=== PATIENT | male | born 1955 | race Caucasian/White ===

== ENCOUNTER 2017-06-19 06:57 | Day surgery (SDC) | payer BC ==
[2017-06-19] MEDS ORDERED: Midazolam 1 MG/ML 2 ML SDV ONE (07:14)
[2017-06-19] MEDS ORDERED: Propofol 200 MG/20 ML SDV ONE (07:14)
[2017-06-19] MEDS ORDERED: fentaNYL 100 MCG/2 ML SDV ONE (07:14)
[2017-06-19] MEDS ORDERED: Sodium Chloride 0.9% 1,000 ML IV SCH (08:00)
--- NOTE | 2017-07-10 09:30 | OR ---
DATE OF PROCEDURE: 06/19/2017 PROCEDURE: Colonoscopy. FINDINGS: Normal colonoscopy. RISKS: Risks, benefits, alternatives, limitations including, but not limited to infection, bleeding, and other risks were explained, along with perforation, were explained to the patient, and he wished to proceed. PREOPERATIVE DIAGNOSIS: Screening colonoscopy. POSTOPERATIVE DIAGNOSIS: Screening colonoscopy. PROCEDURE IN DETAIL: The patient was placed in left lateral decubitus position. Digital rectal exam was performed without abnormality. The scope was introduced and advanced atraumatically to the ileocecal valve. The scope was brought back through the ascending, transverse, descending colon, and retroflexed. No masses. No polyps. No diverticulosis. No old or new blood. Prep was acceptable. The patient tolerated the procedure well. No abnormalities on retroflex. Henry Snell MD /[id number]
== END 2017-06-19 09:39 | disposition home or self-care (01) ==
LOC: JP.SDS 06:57
PROVIDERS: ATTEND Surgery
DX: Z12.11 Encounter for screening for malignant neoplasm of colon (principal); I10 Essential (primary) hypertension; E11.9 Type 2 diabetes mellitus without complications; Z88.1 Allergy status to other antibiotic agents; Z88.2 Allergy status to sulfonamides; Z88.8 Allergy status to other drugs, medicaments and biological substances; Z79.4 Long term (current) use of insulin
CPT/HCPCS: 45378; 82962; J2250; J2704; J3010; J7040

== ENCOUNTER 2019-08-04 15:11 | Emergency (ER) | payer MEDICARE ==
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
[2019-08-04] MEDS ORDERED: Sodium Chloride 0.9% 10 ML Syringe FLUSH PRN (15:44)
[2019-08-04] MEDS ORDERED: HYDROmorphone 1 MG/ML Syringe IM ONE (16:06)
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
== END 2019-08-04 17:03 | disposition home or self-care (01) ==
LOC: JP.ED 15:11
DX: S22.42XA Multiple fractures of ribs, left side, initial encounter for closed fracture (principal); E78.00 Pure hypercholesterolemia, unspecified; I12.9 Hypertensive chronic kidney disease with stage 1 through stage 4 chronic kidney disease, or unspecified chronic kidney disease; N18.3 Chronic kidney disease, stage 3 (moderate); E11.22 Type 2 diabetes mellitus with diabetic chronic kidney disease; Z88.1 Allergy status to other antibiotic agents; Z88.5 Allergy status to narcotic agent; Z88.2 Allergy status to sulfonamides; Z79.4 Long term (current) use of insulin; Z79.82 Long term (current) use of aspirin; Z79.899 Other long term (current) drug therapy; Z86.718 Personal history of other venous thrombosis and embolism; W19.XXXA Unspecified fall, initial encounter
CPT/HCPCS: 36415; 71250; 74176; 80053; 85025; 96372; 99283; 99285; J1170

== ENCOUNTER 2020-06-10 11:55 | Emergency (ER) | payer MEDICARE ==
[2020-06-10] MEDS ORDERED: Sodium Chloride 0.9% 1,000 ML IV SCH (14:15)
[2020-06-10] MEDS ORDERED: Dexamethasone 4 MG/ML SDV IVPUSH ONE (15:41)
--- NOTE | 2020-06-10 15:44 | EDM.PDOC ---
ED HPI GENERAL MEDICAL PROBLEM - General Chief Complaint: Respiratory Problem Stated Complaint: TESTED POSTIVE FOR COVID 8 DAYS AGO BREATHING Time Seen by Provider: 06/10/20 12:15 Source of Information: Reports: Patient History Limitations: Reports: No Limitations - History of Present Illness INITIAL COMMENTS - FREE TEXT/NARRATIVE: pt arrived with a history of covid and this was positive around dec 1. He has not improved and he is running fevers and feeling more sob. His chest is feeling tight. He is drinking good but eating poorly. He has notieced the fevers at nite the last few days. Onset: Gradual Duration: Hour(s): Location: Reports: Chest Associated Symptoms: Reports: Cough, Fever/Chills, Loss of Appetite, Shortness of Breath - Related Data Allergies Allergy/AdvReac Type Severity Reaction Status Date / Time acetaminophen [From Vicodin] Allergy Other Verified 06/10/20 12:44 erythromycin base Allergy Other Verified 06/10/20 12:44 hydrocodone [From Vicodin] Allergy Other Verified 06/10/20 12:44 Sulfa (Sulfonamide Allergy Other Verified 06/10/20 12:44 Antibiotics) Home Meds: Home Meds Losartan [Cozaar] 50 mg PO DAILY 06/18/17 [History] Simvastatin [Zocor] 40 mg PO DAILY 03/07/18 [History] Aspirin [Ecotrin EC] 1 tab PO DAILY 08/04/19 [History] Multivitamin [Multivitamins] 1 tab PO DAILY 08/04/19 [History] Insulin NPH/Insulin Reg,Human [Novolin 70-30] 0 unit SQ BID 06/10/20 [History] Past Medical History HEENT History: Reports: Impaired Vision Cardiovascular History: Reports: Blood Clots/VTE/DVT, High Cholesterol, Hypertension, Other (See Below) Other Cardiovascular History: greenfeild filter Respiratory History: Reports: PE Gastrointestinal History: Reports: Chronic Constipation Genitourinary History: Reports: Other (See Below) Other Genitourinary History: stage III kidney disease as a result of diabetes Musculoskeletal History: Reports: Arthritis, Fracture, Other (See Below) Other Musculoskeletal History: shoulder pain Neurological History: Reports: Concussion Psychiatric History: Reports: Depression Endocrine/Metabolic History: Reports: Diabetes, Type II Hematologic History: Reports: Other (See Below) Other Hematologic History: history of DVTs with iva filter - Infectious Disease History Infectious Disease History: Reports: Chicken Pox, Mumps, Shingles - Past Surgical History Head Surgeries/Procedures: Reports: None HEENT Surgical History: Reports: Laser Surgery, Other (See Below) Cardiovascular Surgical History: Reports: None Respiratory Surgical History: Reports: None GI Surgical History: Reports: None Male Surgical History: Reports: None Endocrine Surgical History: Reports: None Neurological Surgical History: Reports: None Musculoskeletal Surgical History: Reports: Arthroscopic Procedure, Carpal Tunnel, Shoulder Surgery, Other (See Below) Dermatological Surgical History: Reports: None Social & Family History - Family History Family Medical History: No Pertinent Family History - Tobacco Use Tobacco Use Status *Q: Never Tobacco User Second Hand Smoke Exposure: No - Caffeine Use Caffeine Use: Reports: None - Recreational Drug Use Recreational Drug Use: No ED ROS GENERAL - Review of Systems Review Of Systems: See Below Constitutional: Reports: Weakness, Fatigue, Diaphoresis HEENT: Reports: No Symptoms Respiratory: Reports: Shortness of Breath, Cough Cardiovascular: Reports: Dyspnea on Exertion Endocrine: Reports: No Symptoms GI/Abdominal: Reports: No Symptoms : Reports: No Symptoms Musculoskeletal: Reports: No Symptoms Skin: Reports: No Symptoms Neurological: Reports: No Symptoms ED EXAM, GENERAL - Physical Exam Exam: See Below Free Text/Narrative:: pt arrived with a low grade temp. He has been more sob. He has not felt like he is improving. Exam Limited By: No Limitations General Appearance: Alert, Anxious, Mild Distress, Other (pt is oxgenating ok. ) Ears: Normal TMs Nose: Normal Inspection Throat/Mouth: Normal Inspection Head: Atraumatic Neck: Normal Inspection Respiratory/Chest: No Respiratory Distress Cardiovascular: Regular Rate, Rhythm GI/Abdominal: Soft, Non-Tender (Male) Exam: Deferred Rectal (Males) Exam: Deferred Back Exam: Normal Inspection Extremities: Normal Inspection Neurological: Alert, Oriented, Normal Cognition Course - Vital Signs Last Recorded V/S: Last Vital Signs Temp 37.6 C 06/10/20 12:46 Pulse 80 06/10/20 15:15 Resp 20 06/10/20 15:15 BP 183/90 H 06/10/20 15:15 Pulse Ox 95 06/10/20 13:14 - Orders/Labs/Meds Orders: Active Orders 24 hr Category Date Time Status Chest 1V Frontal [CR] Stat Exams 06/10/20 12:49 Taken Sodium Chloride 0.9% [Normal Saline] 1,000 ml Med 06/10/20 14:15 Active IV ASDIRECTED Medication Orders Sodium Chloride (Normal Saline) 1,000 mls @ 250 mls/hr IV ASDIRECTED THUAN Last Admin: 06/10/20 14:40 Dose: 250 mls/hr Documented by: SHANTAL Labs: Laboratory Tests 06/10/20 06/10/20 06/10/20 Range/Units 12:43 12:43 12:43 WBC 6.4 (4.5-11.0) K/uL RBC 4.94 (4.30-5.90) M/uL Hgb 14.2 (12.0-15.0) g/dL Hct 41.6 (40.0-54.0) % MCV 84 (80-98) fL MCH 29 (27-31) pg MCHC 34 (32-36) % Plt Count 262 (150-400) K/uL Neut % (Auto) 72 H (36-66) % Lymph % (Auto) 16 L (24-44) % Foster % (Auto) 11 H (2-6) % Eos % (Auto) 1 L (2-4) % Baso % (Auto) 1 (0-1) % D-Dimer, Quantitative 937.26 H (0.0-500.0) ng/mL Sodium 133 L (140-148) mmol/L Potassium 3.8 (3.6-5.2) mmol/L Chloride 96 L (100-108) mmol/L Carbon Dioxide 23 (21-32) mmol/L Anion Gap 17.8 H (5.0-14.0) mmol/L BUN 24 H (7-18) mg/dL Creatinine 2.1 H (0.8-1.3) mg/dL Est Cr Clr Drug Dosing 37.27 mL/min Estimated GFR (MDRD) 32 L (>60) Glucose 221 H (74-106) mg/dL Calcium 8.4 L (8.5-10.1) mg/dL Total Bilirubin 0.5 (0.2-1.0) mg/dL AST 29 (15-37) U/L ALT 32 (12-78) U/L Alkaline Phosphatase 75 (46-116) U/L C-Reactive Protein (0.0-0.3) mg/dL Total Protein 6.7 (6.4-8.2) g/dL Albumin 2.3 L (3.4-5.0) g/dL Globulin 4.4 H (2.3-3.5) g/dL Albumin/Globulin Ratio 0.5 L (1.2-2.2) Urine Color (YELLOW) Urine Appearance (CLEAR) Urine pH (5.0-8.0) Ur Specific [place] (1.008-1.030) Urine Protein (NEGATIVE) mg/dL Urine Glucose (UA) (NEGATIVE) mg/dL Urine Ketones (NEGATIVE) mg/dL Urine Occult Blood (NEGATIVE) Urine Nitrite (NEGATIVE) Urine Bilirubin (NEGATIVE) Urine Urobilinogen (0.2-1.0) EU/dL Ur Leukocyte Esterase (NEGATIVE) Urine RBC (0-5) Urine WBC (0-5) Ur Epithelial Cells Amorphous Sediment Urine Bacteria Urine Mucus 06/10/20 06/10/20 Range/Units 12:43 13:04 WBC (4.5-11.0) K/uL RBC (4.30-5.90) M/uL Hgb (12.0-15.0) g/dL Hct (40.0-54.0) % MCV (80-98) fL MCH (27-31) pg MCHC (32-36) % Plt Count (150-400) K/uL Neut % (Auto) (36-66) % Lymph % (Auto) (24-44) % Foster % (Auto) (2-6) % Eos % (Auto) (2-4) % Baso % (Auto) (0-1) % D-Dimer, Quantitative (0.0-500.0) ng/mL Sodium (140-148) mmol/L Potassium (3.6-5.2) mmol/L Chloride (100-108) mmol/L Carbon Dioxide (21-32) mmol/L Anion Gap (5.0-14.0) mmol/L BUN (7-18) mg/dL Creatinine (0.8-1.3) mg/dL Est Cr Clr Drug Dosing mL/min Estimated GFR (MDRD) (>60) Glucose (74-106) mg/dL Calcium (8.5-10.1) mg/dL Total Bilirubin (0.2-1.0) mg/dL AST (15-37) U/L ALT (12-78) U/L Alkaline Phosphatase (46-116) U/L C-Reactive Protein 7.59 H (0.0-0.3) mg/dL Total Protein (6.4-8.2) g/dL Albumin (3.4-5.0) g/dL Globulin (2.3-3.5) g/dL Albumin/Globulin Ratio (1.2-2.2) Urine Color Yellow (YELLOW) Urine Appearance Slightly cloudy A (CLEAR) Urine pH 6.0 (5.0-8.0) Ur Specific [place] 1.025 (1.008-1.030) Urine Protein >=300 H (NEGATIVE) mg/dL Urine Glucose (UA) 100 H (NEGATIVE) mg/dL Urine Ketones Negative (NEGATIVE) mg/dL Urine Occult Blood Moderate H (NEGATIVE) Urine Nitrite Negative (NEGATIVE) Urine Bilirubin Negative (NEGATIVE) Urine Urobilinogen 1.0 (0.2-1.0) EU/dL Ur Leukocyte Esterase Negative (NEGATIVE) Urine RBC 0-5 (0-5) Urine WBC 0-5 (0-5) Ur Epithelial Cells Rare Amorphous Sediment Few Urine Bacteria Few Urine Mucus Not seen Meds: Medications Generic Name Dose Route Start Last Admin Trade Name Freq PRN Reason Stop Dose Admin Sodium Chloride 1,000 mls @ 250 mls/hr 06/10/20 14:15 06/10/20 14:40 Normal Saline IV 250 mls/hr ASDIRECTED THUAN Administration - Re-Assessments/Exams Free Text/Narrative Re-Assessment/Exam: 06/10/20 15:45 pt has a elevated ddimer and crp. He is oxgening good. He is a diabetic and has hypertension. pt is a canidate for monoclonal therapy. He was given a liter of f luid. since he is oxgenating well. Departure - Departure Time of Disposition: 15:47 Disposition: Home, Self-Care 01 Condition: Fair Clinical Impression: COVID-19, Dehydration - Discharge Information Referrals: PCP,None [Primary Care Provider] - Care Plan Goals: rtc tomorrow for monoclonal infusion, continue to push fluids at home, decadron 4mg bid for 3 days. The decadron will raise your bs. Rtc if you are suddenly worse. Sepsis Event Note (ED) - Evaluation Sepsis Screening Result: No Definite Risk - Focused Exam Vital Signs: Vital Signs Temp Pulse Resp BP Pulse Ox 06/10/20 15:15 80 20 183/90 H 06/10/20 13:14 86 15 183/96 H 95 06/10/20 12:46 37.6 C 85 20 194/99 H 94 L 06/10/20 12:39 82 14 177/95 H 89 L 06/10/20 12:14 37.6 C 85 20 194/99 H 94 L - My Orders Last 24 Hours: My Active Orders 06/10/20 12:49 Chest 1V Frontal [CR] Stat 06/10/20 14:15 Sodium Chloride 0.9% [Normal Saline] 1,000 ml IV ASDIRECTED - Assessment/Plan Last 24 Hours: My Active Orders 06/10/20 12:49 Chest 1V Frontal [CR] Stat 06/10/20 14:15 Sodium Chloride 0.9% [Normal Saline] 1,000 ml IV ASDIRECTED
--- NOTE | 2020-06-11 10:58 | CR ---
CHEST: Vertebral 06/10/2020 at 1:19 PM CLINICAL HISTORY:SOB COMPARISON:CT July 2019 FINDINGS: Heart size and pulmonary vascular normal. There is ill-defined pneumonic infiltrate or pneumonitis in THE LEFT LUNG. RIGHT LUNG IS RELATIVELY CLEAR. THERE ARE NO EFFUSIONS. IMPRESSION: Diffuse left lung pneumonic infiltrate.
== END 2020-06-10 16:09 | disposition home or self-care (01) ==
LOC: JP.ED 11:55
DX: U07.1 COVID-19 (principal); E86.0 Dehydration; E78.00 Pure hypercholesterolemia, unspecified; I10 Essential (primary) hypertension; M19.90 Unspecified osteoarthritis, unspecified site; E11.9 Type 2 diabetes mellitus without complications; Z88.6 Allergy status to analgesic agent; Z88.1 Allergy status to other antibiotic agents; Z88.5 Allergy status to narcotic agent; Z88.2 Allergy status to sulfonamides; Z79.82 Long term (current) use of aspirin; Z79.4 Long term (current) use of insulin; Z79.899 Other long term (current) drug therapy
CPT/HCPCS: 36415; 71045; 80053; 81001; 85025; 85379; 86140; 96374; 99285; J1100; J7030

== ENCOUNTER 2022-01-13 13:30 | Emergency (ER) | payer MEDICARE ==
[2022-01-13] MEDS ORDERED: HYDROmorphone 1 MG/ML Syringe IM ONE (15:20)
== END 2022-01-13 16:20 | disposition home or self-care (01) ==
LOC: JP.ED 13:30
DX: S86.001A Unspecified injury of right Achilles tendon, initial encounter (principal); E78.00 Pure hypercholesterolemia, unspecified; E11.22 Type 2 diabetes mellitus with diabetic chronic kidney disease; I12.9 Hypertensive chronic kidney disease with stage 1 through stage 4 chronic kidney disease, or unspecified chronic kidney disease; N18.30 Chronic kidney disease, stage 3 unspecified; Z88.1 Allergy status to other antibiotic agents; Z88.2 Allergy status to sulfonamides; Z88.5 Allergy status to narcotic agent; Z88.8 Allergy status to other drugs, medicaments and biological substances; Z79.4 Long term (current) use of insulin; Z79.899 Other long term (current) drug therapy; W22.09XA Striking against other stationary object, initial encounter; Y92.59 Other trade areas as the place of occurrence of the external cause; Y99.0 Civilian activity done for income or pay
CPT/HCPCS: 96372; 99283; J1170

== ENCOUNTER 2022-12-19 17:50 | Emergency (ER) | payer MEDICARE ==
[2022-12-19 19:52] LABS: BASOPHILS ABSOLUTE AUTO 0.16 K/uL (0.00-0.10); BASOPHILS PERCENT AUTO 1.8 % (0.1-1.3); EOSINOPHILS ABSOLUTE AUTO 0.36 K/uL (0.00-0.40); EOSINOPHILS PERCENT AUTO 4.2 % (0.0-5.4); HEMOGLOBIN 13.5 g/dL (12.9-16.9); IMMATURE GRAN ABSOLUTE AUTO 0.05 K/uL (0.00-0.23); IMMATURE GRAN PERCENT AUTO 0.6 % (0.0-0.7); LYMPHOCYTES ABSOLUTE AUTO 2.71 K/uL (0.8-3.3); LYMPHOCYTES PERCENT AUTO 31.3 % (11.4-47.7); MEAN CORPUSCULAR HEMOGLOBIN 29.3 pg (31.6-35.5); MEAN CORPUSCULAR HGB CONC 34.6 g/dL (31.6-35.5); MEAN CORPUSCULAR VOLUME 84.8 fL (81.4-99.0); MONOCYTES ABSOLUTE AUTO 0.83 K/uL (0.20-0.90); MONOCYTES PERCENT AUTO 9.6 % (3.3-12.6); NEUTROPHILS ABSOLUTE AUTO 4.56 K/uL (1.0-7.6); NEUTROPHILS PERCENT AUTO 52.5 % (40.0-78.1); PLATELET COUNT,PLT 273 K/uL (130-375); WHITE BLOOD CELL COUNT,WBC 8.7 K/uL (3.2-11.0)
[2022-12-19 20:14] LABS: A/G RATIO 0.7 (1.2-2.2); ALANINE AMINOTRANSFERASE,ALT 28 U/L (12-78); ALBUMIN 2.9 g/dL (3.4-5.0); ALKALINE PHOSPHATASE 65 U/L (46-116); ASPARTATE AMNIOTRANSFERASE,AST 18 U/L (15-37); BILIRUBIN TOTAL 0.3 mg/dL (0.2-1.0); BLOOD UREA NITROGEN,BUN 54 mg/dL (7-18); C-REACTIVE PROTEIN 0.43 mg/dL (0.0-0.3); CALCIUM 8.2 mg/dL (8.5-10.1); CARBON DIOXIDE,CO2 21 mmol/L (21-32); CHLORIDE,CL 104 mmol/L (100-108); EST CRCL DRUG DOSING (CG) 20.28 mL/min; ESTIMATED GFR 17 mL/min (>60); GLUCOSE RANDOM 151 mg/dL (74-106); POTASSIUM,K 3.9 mmol/L (3.6-5.2); SODIUM,NA 136 mmol/L (140-148)
[2022-12-19 20:15] LABS: ANION GAP 14.9 mmol/L (5.0-14.0)
[2022-12-19 20:16] LABS: CREATININE 3.7 mg/dL (0.8-1.3)
== END 2022-12-19 22:15 | disposition home or self-care (01) ==
LOC: JP.ED 17:50
DX: S90.862A Insect bite (nonvenomous), left foot, initial encounter (principal); L03.116 Cellulitis of left lower limb; E11.22 Type 2 diabetes mellitus with diabetic chronic kidney disease; I12.9 Hypertensive chronic kidney disease with stage 1 through stage 4 chronic kidney disease, or unspecified chronic kidney disease; N18.4 Chronic kidney disease, stage 4 (severe); Z79.4 Long term (current) use of insulin; Z79.899 Other long term (current) drug therapy; Z88.1 Allergy status to other antibiotic agents; Z88.2 Allergy status to sulfonamides; Z88.8 Allergy status to other drugs, medicaments and biological substances; W57.XXXA Bitten or stung by nonvenomous insect and other nonvenomous arthropods, initial encounter
CPT/HCPCS: 36415; 80053; 85025; 85379; 86140; 93971-LT; 99284

== ENCOUNTER 2023-07-01 10:04 | Emergency (ER) | payer MEDICARE ==
[2023-07-01 11:40] LABS: BASOPHILS ABSOLUTE AUTO 0.11 K/uL (0.00-0.10); BASOPHILS PERCENT AUTO 1.2 % (0.1-1.3); EOSINOPHILS ABSOLUTE AUTO 0.32 K/uL (0.00-0.40); EOSINOPHILS PERCENT AUTO 3.6 % (0.0-5.4); HEMATOCRIT 35.8 % (38.4-49.7); HEMOGLOBIN 12.2 g/dL (12.9-16.9); IMMATURE GRAN ABSOLUTE AUTO 0.07 K/uL (0.00-0.23); IMMATURE GRAN PERCENT AUTO 0.8 % (0.0-0.7); LYMPHOCYTES ABSOLUTE AUTO 1.96 K/uL (0.8-3.3); LYMPHOCYTES PERCENT AUTO 21.9 % (11.4-47.7); MEAN CORPUSCULAR HEMOGLOBIN 29.8 pg (31.6-35.5); MEAN CORPUSCULAR HGB CONC 34.1 g/dL (31.6-35.5); MEAN CORPUSCULAR VOLUME 87.3 fL (81.4-99.0); MONOCYTES ABSOLUTE AUTO 0.83 K/uL (0.20-0.90); MONOCYTES PERCENT AUTO 9.3 % (3.3-12.6); NEUTROPHILS ABSOLUTE AUTO 5.66 K/uL (1.0-7.6); NEUTROPHILS PERCENT AUTO 63.2 % (40.0-78.1); PLATELET COUNT,PLT 318 K/uL (130-375)
[2023-07-01 11:58] LABS: C-REACTIVE PROTEIN 0.9 mg/dL (<0.50); CALCIUM 8.4 mg/dL (8.5-10.1); EST CRCL DRUG DOSING (CG) 19.48 mL/min; POTASSIUM,K 4.6 mmol/L (3.6-5.2)
[2023-07-01 11:59] LABS: ANION GAP 10.6 mmol/L (5.0-14.0)
[2023-07-01 12:00] LABS: CREATININE 3.8 mg/dL (0.8-1.3)
[2023-07-01 12:03] LABS: ALKALINE PHOSPHATASE 64 U/L (46-116); CREATINE KINASE,CK 174 U/L (39-308)
== END 2023-07-01 13:40 | disposition home or self-care (01) ==
LOC: JP.ED 10:04
DX: I12.9 Hypertensive chronic kidney disease with stage 1 through stage 4 chronic kidney disease, or unspecified chronic kidney disease (principal); E11.22 Type 2 diabetes mellitus with diabetic chronic kidney disease; N18.4 Chronic kidney disease, stage 4 (severe); D64.9 Anemia, unspecified; E78.00 Pure hypercholesterolemia, unspecified; Z79.4 Long term (current) use of insulin; Z79.899 Other long term (current) drug therapy; Z86.16 Personal history of COVID-19; Z88.6 Allergy status to analgesic agent
CPT/HCPCS: 36415; 73502-26-RT; 73502-RT; 80048; 82550; 84075; 85025; 85379; 86140; 99283

== ENCOUNTER 2023-07-06 04:15 | Emergency (ER) | payer MEDICARE ==
[2023-07-06 04:55] LABS: BASOPHILS ABSOLUTE AUTO 0.04 K/uL (0.00-0.10); BASOPHILS PERCENT AUTO 0.3 % (0.1-1.3); EOSINOPHILS PERCENT AUTO 1.5 % (0.0-5.4); HEMATOCRIT 33.5 % (38.4-49.7); HEMOGLOBIN 11.2 g/dL (12.9-16.9); IMMATURE GRAN ABSOLUTE AUTO 0.05 K/uL (0.00-0.23); IMMATURE GRAN PERCENT AUTO 0.4 % (0.0-0.7); LYMPHOCYTES ABSOLUTE AUTO 1.87 K/uL (0.8-3.3); MEAN CORPUSCULAR HEMOGLOBIN 29.4 pg (31.6-35.5); MEAN CORPUSCULAR HGB CONC 33.4 g/dL (31.6-35.5); MEAN CORPUSCULAR VOLUME 87.9 fL (81.4-99.0); MONOCYTES ABSOLUTE AUTO 1.18 K/uL (0.20-0.90); MONOCYTES PERCENT AUTO 8.8 % (3.3-12.6); NEUTROPHILS ABSOLUTE AUTO 10.06 K/uL (1.0-7.6); PLATELET COUNT,PLT 270 K/uL (130-375); RED BLOOD CELL COUNT 3.81 M/uL (4.14-5.76); WHITE BLOOD CELL COUNT,WBC 13.4 K/uL (3.2-11.0)
[2023-07-06 05:11] LABS: A/G RATIO 0.6 (1.2-2.2); ALANINE AMINOTRANSFERASE,ALT 23 U/L (12-78); ALBUMIN 2.6 g/dL (3.4-5.0); ALKALINE PHOSPHATASE 59 U/L (46-116); ASPARTATE AMNIOTRANSFERASE,AST 14 U/L (15-37); BILIRUBIN TOTAL 0.4 mg/dL (0.2-1.0); BLOOD UREA NITROGEN,BUN 66 mg/dL (7-18); CALCIUM 7.8 mg/dL (8.5-10.1); CARBON DIOXIDE,CO2 17 mmol/L (21-32); CHLORIDE,CL 97 mmol/L (100-108); ESTIMATED GFR 12 mL/min (>60); GLUCOSE RANDOM 186 mg/dL (74-106); POTASSIUM,K 4.3 mmol/L (3.6-5.2); PROTEIN TOTAL,TP 6.9 g/dL (6.4-8.2); SODIUM,NA 126 mmol/L (140-148)
[2023-07-06 05:13] LABS: ANION GAP 16.3 mmol/L (5.0-14.0)
[2023-07-06] MEDS ORDERED: Sodium Chloride 0.9% 10 ML Syringe FLUSH PRN (05:20)
[2023-07-06] MEDS ORDERED: Sodium Chloride 0.9% 1,000 ML IV SCH (05:30)
[2023-07-06 15:11] LABS: CALCIUM 7.7 mg/dL (8.5-10.1); EST CRCL DRUG DOSING (CG) 12.54 mL/min; POTASSIUM,K 4.5 mmol/L (3.6-5.2)
[2023-07-06 15:12] LABS: ANION GAP 16.5 mmol/L (5.0-14.0)
[2023-07-06 15:13] LABS: CREATININE 5.9 mg/dL (0.8-1.3)
[2023-07-06 15:42] LABS: APPEARANCE,URINE SLIGHTLY CLOUDY (CLEAR); BILIRUBIN,URINE NEGATIVE (NEGATIVE); COLOR,URINE YELLOW (YELLOW); GLUCOSE,URINE 100 mg/dL (NEGATIVE); KETONES,URINE NEGATIVE (NEGATIVE); LEUKOCYTE ESTERASE,URINE NEGATIVE (NEGATIVE); NITRITE,URINE NEGATIVE (NEGATIVE); OCCULT BLOOD,URINE SMALL (NEGATIVE); PH,URINE 5.5 (5.0-8.0); PROTEIN,URINE >=300 mg/dL (NEGATIVE); UROBILINOGEN,URINE 0.2 EU/dL (0.2-1.0)
[2023-07-06 15:47] LABS: AMORPHOUS SEDIMENT,URINE MODERATE; BACTERIA,URINE MANY; EPITHELIAL CELLS,URINE FEW; WBC,URINE 0-5 (0-5)
[2023-07-06 15:48] LABS: MUCUS,URINE MODERATE
== END 2023-07-06 18:05 ==
LOC: JP.ED 04:15
DX: R41.82 Altered mental status, unspecified (principal); N18.6 End stage renal disease; I12.0 Hypertensive chronic kidney disease with stage 5 chronic kidney disease or end stage renal disease; E78.00 Pure hypercholesterolemia, unspecified; E11.22 Type 2 diabetes mellitus with diabetic chronic kidney disease; Z86.16 Personal history of COVID-19; Z79.01 Long term (current) use of anticoagulants; Z79.4 Long term (current) use of insulin; Z88.5 Allergy status to narcotic agent; Z88.1 Allergy status to other antibiotic agents; Z88.6 Allergy status to analgesic agent
CPT/HCPCS: 36415; 80048; 80053; 81001; 82140; 83605; 84145; 85025; 86140; 87040; 87086; 96360; 96361; 99284; 99285; J3490; J7030

== ENCOUNTER 2023-08-05 19:23 | Emergency (ER) | payer MEDICARE ==
[2023-08-05 20:15] LABS: BASOPHILS PERCENT AUTO 1.4 % (0.1-1.3); EOSINOPHILS ABSOLUTE AUTO 0.23 K/uL (0.00-0.40); EOSINOPHILS PERCENT AUTO 3.2 % (0.0-5.4); HEMATOCRIT 30.9 % (38.4-49.7); HEMOGLOBIN 10.7 g/dL (12.9-16.9); IMMATURE GRAN ABSOLUTE AUTO 0.03 K/uL (0.00-0.23); IMMATURE GRAN PERCENT AUTO 0.4 % (0.0-0.7); LYMPHOCYTES ABSOLUTE AUTO 1.95 K/uL (0.8-3.3); LYMPHOCYTES PERCENT AUTO 27.5 % (11.4-47.7); MEAN CORPUSCULAR HEMOGLOBIN 30.1 pg (31.6-35.5); MEAN CORPUSCULAR HGB CONC 34.6 g/dL (31.6-35.5); MONOCYTES ABSOLUTE AUTO 0.89 K/uL (0.20-0.90); MONOCYTES PERCENT AUTO 12.6 % (3.3-12.6); NEUTROPHILS ABSOLUTE AUTO 3.88 K/uL (1.0-7.6); NEUTROPHILS PERCENT AUTO 54.9 % (40.0-78.1); PLATELET COUNT,PLT 273 K/uL (130-375); RED BLOOD CELL COUNT 3.55 M/uL (4.14-5.76); WHITE BLOOD CELL COUNT,WBC 7.1 K/uL (3.2-11.0)
[2023-08-05 20:30] LABS: CALCIUM 8.5 mg/dL (8.5-10.1); CREATININE 2.8 mg/dL (0.8-1.3); EST CRCL DRUG DOSING (CG) 26.43 mL/min
[2023-08-05 20:32] LABS: ANION GAP 11.8 mmol/L (5.0-14.0); POTASSIUM,K 2.8 mmol/L (3.6-5.2)
[2023-08-05] MEDS: Potassium Chloride 20 MEQ Tab.ER PO ONE (21:54)
[2023-08-05 23:14] LABS: ANION GAP 11.1 mmol/L (5.0-14.0); CALCIUM 8.5 mg/dL (8.5-10.1); EST CRCL DRUG DOSING (CG) 24.67 mL/min; POTASSIUM,K 3.1 mmol/L (3.6-5.2)
== END 2023-08-05 23:29 | disposition home or self-care (01) ==
LOC: JP.ED 19:23
DX: K59.00 Constipation, unspecified (principal); N18.4 Chronic kidney disease, stage 4 (severe); I12.0 Hypertensive chronic kidney disease with stage 5 chronic kidney disease or end stage renal disease; E78.00 Pure hypercholesterolemia, unspecified; E11.9 Type 2 diabetes mellitus without complications; Z79.4 Long term (current) use of insulin; Z79.01 Long term (current) use of anticoagulants; Z86.16 Personal history of COVID-19; Z88.1 Allergy status to other antibiotic agents; Z88.5 Allergy status to narcotic agent; Z79.899 Other long term (current) drug therapy
CPT/HCPCS: 36415; 80048; 85025; 99283; A9270-GY

== ENCOUNTER 2024-07-11 23:32 | Emergency (ER) | payer MEDICARE, OTHER ==
[2024-07-12 00:23] LABS: BASOPHILS ABSOLUTE AUTO 0.08 K/uL (0.00-0.10); BASOPHILS PERCENT AUTO 0.9 % (0.1-1.3); EOSINOPHILS ABSOLUTE AUTO 0.13 K/uL (0.00-0.40); EOSINOPHILS PERCENT AUTO 1.5 % (0.0-5.4); HEMATOCRIT 32.2 % (38.4-49.7); HEMOGLOBIN 11.6 g/dL (12.9-16.9); IMMATURE GRAN ABSOLUTE AUTO 0.09 K/uL (0.00-0.23); LYMPHOCYTES ABSOLUTE AUTO 1.16 K/uL (0.8-3.3); MEAN CORPUSCULAR HEMOGLOBIN 30.4 pg (31.6-35.5); MEAN CORPUSCULAR VOLUME 84.5 fL (81.4-99.0); MONOCYTES ABSOLUTE AUTO 0.87 K/uL (0.20-0.90); MONOCYTES PERCENT AUTO 9.8 % (3.3-12.6); NEUTROPHILS ABSOLUTE AUTO 6.57 K/uL (1.0-7.6); NEUTROPHILS PERCENT AUTO 73.8 % (40.0-78.1); PLATELET COUNT,PLT 216 K/uL (130-375); RED BLOOD CELL COUNT 3.81 M/uL (4.14-5.76); WHITE BLOOD CELL COUNT,WBC 8.9 K/uL (3.2-11.0)
[2024-07-12 00:27] LABS: BASE EXCESS VENOUS 5.8 mm/L; BICARBONATE,VENOUS 28.9 mmol/L; CARBOXYHEMOGLOBIN 2.3 % (0.0-1.6); METHEMOGLOBIN 0.6 %; O2 SATURATION VENOUS 75.6; OXYHEMOGLOBIN 73.4 %; PH,VENOUS 7.504 (7.350-7.450)
[2024-07-12 00:28] LABS: PO2 VENOUS 37.8 mm/Hg
[2024-07-12] MEDS: Albuterol/Ipratropium 3.0-0.5 MG/3 ML Neb Soln NEB ONE (00:38)
[2024-07-12 00:52] LABS: C-REACTIVE PROTEIN 7.58 mg/dL (<0.50); CALCIUM 8.4 mg/dL (8.5-10.1); EST CRCL DRUG DOSING (CG) 14.9 mL/min; LACTIC ACID 1.2 mmol/L (0.4-2.0)
[2024-07-12 00:55] LABS: CREATININE 4.9 mg/dL (0.8-1.3)
[2024-07-12] MEDS: cefTRIAXone 2 GM in Sodium Chloride 0.9% 50 ML IV ONE (01:44)
[2024-07-12] MEDS: Doxycycline 100 MG Cap PO ONE (01:45)
[2024-07-12] MEDS: Acetaminophen 500 MG Tab PO ONE (02:03)
== END 2024-07-12 02:35 | disposition home or self-care (01) ==
LOC: JP.ED 23:32
DX: J18.9 Pneumonia, unspecified organism (principal); I12.9 Hypertensive chronic kidney disease with stage 1 through stage 4 chronic kidney disease, or unspecified chronic kidney disease; N18.9 Chronic kidney disease, unspecified; E11.9 Type 2 diabetes mellitus without complications; Z86.16 Personal history of COVID-19; Z79.899 Other long term (current) drug therapy; Z79.82 Long term (current) use of aspirin; Z79.4 Long term (current) use of insulin; Z88.5 Allergy status to narcotic agent; Z88.8 Allergy status to other drugs, medicaments and biological substances; Z88.1 Allergy status to other antibiotic agents
CPT/HCPCS: 36415; 71046; 71046-26; 80048; 82803; 83605; 84145; 84484; 85025; 86140; 87428-QW; 94640; 96365; 99284; 99284-25; A9270-GY; J0696; J3490; J7620

== ENCOUNTER 2025-01-02 09:21 | Day surgery (SDC) | payer MEDICARE ==
[~2025-01-02 09:21] MED LIST: Midazolam 1 MG/ML 2 ML SDV ONE; Propofol 200 MG/20 ML SDV ONE; fentaNYL 100 MCG/2 ML SDV ONE
[2025-01-02] MEDS: Lactated Ringers 1,000 ML IV SCH (10:40)
[2025-01-02] MEDS: Bupivacaine 0.5%/EPINEPHrine 1:200,000 50 ML MDV ONE (11:00)
== END 2025-01-02 13:00 | disposition home or self-care (01) ==
LOC: JP.SDS 09:21
PROVIDERS: ATTEND Surgery
DX: N62 Hypertrophy of breast (principal); E66.811 Obesity, class 1; I12.0 Hypertensive chronic kidney disease with stage 5 chronic kidney disease or end stage renal disease; E11.22 Type 2 diabetes mellitus with diabetic chronic kidney disease; N18.6 End stage renal disease; Z88.1 Allergy status to other antibiotic agents; Z80.3 Family history of malignant neoplasm of breast; Z88.5 Allergy status to narcotic agent; Z68.33 Body mass index [BMI] 33.0-33.9, adult; Z79.82 Long term (current) use of aspirin; Z79.899 Other long term (current) drug therapy
CPT/HCPCS: 00400; 19120; J0690; J2003; J2250; J2704; J3010; J3490; J7120; 88307